=== PATIENT | female | born 1980 | race Hispanic/Latino ===

== ENCOUNTER 2017-04-02 23:17 | Emergency (ER) | payer OTHER ==
[2017-04-02 23:25] VITALS: BP 115/77; PULSE 100; RESP 18; TEMP 98.3
[2017-04-02 23:31] VITALS: O2SAT 100
[2017-04-02 23:50] LABS: BASO # 0.1 K/uL (0.0-0.2); BASO % 0.7 % (0.0-2.0); EOS # 0.2 K/uL (0.0-0.7); EOS % 2.2 % (0.0-4.0); HEMOGLOBIN 13.5 g/dL (11.0-16.0); LYMPH # 3.9 K/uL (1.0-4.3); LYMPH % 34.7 % (20.0-40.0); MEAN CORPUSCULAR HEMOGLOBIN 29.4 pg (27.0-31.0); MEAN CORPUSCULAR HGB CONC 35.8 g/dL (33.0-37.0); MEAN PLATELET VOLUME 9.2 fL (7.2-11.7); MONO # 0.7 K/uL (0.0-0.8); MONO % 6.6 % (0.0-10.0); NEUT # 6.3 K/uL (1.8-7.0); NEUT % 55.8 % (50.0-75.0); NRBC % 0.1 % (0.0-2.0); RBC 4.58 Mil/uL (3.80-5.20); RED CELL DISTRIBUTION WIDTH 13.4 % (11.5-14.5); WHITE BLOOD COUNT 11.2 K/uL (4.8-10.8)
--- NOTE | 2017-04-02 23:58 | C.PDOC ---
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 Patient states she sustained a small puncture wound to the right index finger, she immediately washed her finger under running water. She reports that the patient' s status for hepatitis and HIV are unknown. Patient is up to date with tetanus immunization and hepatitis b immunization, denies other complaints. Time Seen by Provider: 04/02/17 23:23 Chief Complaint (Nursing): Needle Stick History Per: Patient History/Exam Limitations: no limitations Onset/Duration Of Symptoms: Mins Current Symptoms Are (Timing): Still Present Past Medical History Reviewed: Historical Data, Nursing Documentation, Vital Signs Vital Signs: Last Vital Signs Temp 98.3 F 04/02/17 23:22 Pulse 100 H 04/02/17 23:22 Resp 18 04/02/17 23:22 BP 115/77 04/02/17 23:22 Pulse Ox 100 04/03/17 00:17 Family History: States: Unknown Family Hx - Social History Hx Alcohol Use: No Hx Substance Use: No Review Of Systems Musculoskeletal: Positive for: Other (Needle stick). Negative for: Hand Pain Physical Exam - Physical Exam Appears: Non-toxic, No Acute Distress Skin: Normal Color, Warm, Dry Head: Atraumatic, Normacephalic Eye(s): bilateral: Normal Inspection Extremity: Normal ROM (x4), Other (No wound visualized, no active bleeding.) Neurological/Psych: Oriented x3, Normal Speech ED Course And Treatment - Laboratory Results Result Diagrams: 04/02/17 23:47 O2 Sat by Pulse Oximetry: 100 (Room air) Pulse Ox Interpretation: Normal Progress Note: Blood work and urinalysis ordered. Patient offered prophylaxis for post exposure injury but refuses as source pt is elderly. Patient understands the risks of not starting prophylaxis and understands to follow up with employee health in 1-2 days for lab reports and /or treatment. 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 Disposition Counseled Patient/Family Regarding: Diagnosis, Need For Followup, Rx Given - Disposition Referrals: [facility] [Other] Disposition: HOME/ ROUTINE Disposition Time: 00:21 Condition: STABLE Additional Instructions: Follow up in [facility] for results and prophylaxis / treatment as needed Return to ER if worse Instructions: Needle Stick Injuries (ED) Forms: [facility] ([employer]) - Clinical Impression Clinical Impression: Needle stick injury - PA / SUPPORT SERVICE TECH / Resident Statement MD/DO has reviewed & agrees with the documentation as recorded. - Scribe Statement The provider has reviewed the documentation as recorded by the Scribshae Marion All medical record entries made by the Scribe were at my direction and personally dictated by me. I have reviewed the chart and agree that the record accurately reflects my personal performance of the history, physical exam, medical decision making, and the department course for this patient. I have also personally directed, reviewed, and agree with the discharge instructions and disposition.
[2017-04-03 00:27] LABS: SQUAMOUS EPITHIAL 5 /hpf (0-5); URINE BACTERIA RARE (<OCC); URINE BILIRUBIN NEGATIVE (NEGATIVE); URINE BLOOD NEGATIVE (NEGATIVE); URINE CLARITY Hazy (Clear); URINE COLOR Yellow (YELLOW); URINE GLUCOSE (UA) NORMAL (Normal); URINE LEUKOCYTE ESTERASE 3+ Leu/uL (Negative); URINE NITRATE NEGATIVE (NEGATIVE); URINE PROTEIN NEGATIVE (NEGATIVE); URINE UROBILINOGEN NORMAL mg/dL (0.2-1.0)
[2017-04-03 00:31] LABS: HCG,QUALITATIVE URINE NEGATIVE (NEGATIVE)
[2017-04-03 04:28] LABS: HEPATITIS B SURFACE AG Negative (NEGATIVE)
[2017-04-03 04:59] LABS: HEPATITIS C ANTIBODY NEGATIVE (NEGATIVE)
== END 2017-04-03 00:31 | disposition home or self-care (01) ==
LOC: C.ER 23:17
DX: S61.230A Puncture wound without foreign body of right index finger without damage to nail, initial encounter (principal); W46.0XXA Contact with hypodermic needle, initial encounter; Y99.0 Civilian activity done for income or pay